=== PATIENT | male | born 1945 | race Caucasian/White ===

== ENCOUNTER 2017-03-28 10:54 | Day surgery (SDC) | payer MEDICARE ==
[~2017-03-28 10:54] MED LIST: ALDACTONE50 MG PO; CARAFATE1 G PO; CORGARD80 MG PO; ENULOSE10 G/15 ML PO; LASIX40 MG PO; PROTONIX20 MG PO; VITAMIN B-150 MG PO
[2017-03-28 12:18] LABS: BASOPHILS 0.3 % (0-2); EOSINOPHILS 5.6 % (0-7); HEMATOCRIT 29.2 % (42.0-54.0); HEMOGLOBIN 10.2 g/dL (13.5-17.5); IMMATURE GRANULOCYTES 0.2 % (0-5); LYMPHOCYTES 39.9 % (15-50); MCHC 34.9 g/dL (31.0-37.0); MCV 103.2 fL (80.0-100.0); MEAN PLATELET VOLUME 10.6 fL (7.4-10.4); MONOCYTES 12.4 % (2-11); NEUTROPHILS 41.6 % (40-80); PLATELET COUNT 117 10x3/uL (130-400); RBC 2.83 10x6/uL (4.20-6.10); RDW 13.6 % (11.5-14.5); WBC 5.7 10x3/uL (4.8-10.8)
[2017-03-28 12:27] LABS: APTT 31.6 SECONDS (22.8-39.4); INR 1.27 (0.85-1.17); PROTIME 15.8 SECONDS (11.6-15.0)
[2017-03-28 12:32] LABS: ALBUMIN 2.8 g/dL (3.4-5.0); ALKALINE PHOSPHATASE 92 U/L (46-116); ALT (SGPT) 17 U/L (10-68); BILIRUBIN - TOTAL 1.61 mg/dL (0.2-1.3); CALC OSMOLALITY 277 mosm/kg (275-300); CALCIUM 8.9 mg/dL (8.5-10.1); CARBON DIOXIDE 28.2 mmol/L (21.0-32.0); CHLORIDE - SERUM 107 mmol/L (98-107); GLUCOSE 99 mg/dL (74-106); POTASSIUM - SERUM 3.9 mmol/L (3.5-5.1); PROTEIN - SERUM 6.5 g/dL (6.4-8.2); SODIUM 139 mmol/L (136-145); UREA NITROGEN 12 mg/dL (7-18); eGFR NON AFRICAN AMERICAN 78 mL/min (90-120)
[2017-03-28 13:03] VITALS: BP 101/51; BMI 30.6
--- NOTE | 2017-03-28 14:17 | NUR ---
1417 BALLOON DILATION TO 17 MM 55 YI.
--- NOTE | 2017-04-01 16:01 | OP ---
PATIENT NAME: SCOTT ROMAN JR MEDICAL RECORD: [id number] :47 LOCATION:[facility] ADMISSION DATE: SURGEON: LULU PEDERSON MD DATE OF OPERATION: 03/28/2017 PROCEDURE: EGD with biopsy and esophageal balloon dilatation. REFERRING PHYSICIAN: Antonia Prado. INDICATIONS: Mr. 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 He has been having symptoms of dysphagia. His last EGD was 06/13/2016, showed grade I esophageal varices, healed ulcerative esophagitis, cazcvbqz-ky-fmqsz hiatal hernia, and a nonobstructive asymptomatic Schatzki ring, gastritis. He has been on nadolol for esophageal varices. He presents for outpatient EGD. PREMEDICATIONS: Total IV anesthesia (cirrhosis), propofol 200 mg. INSTRUMENT: Olympus video gastroscope and esophageal balloon dilator. PROCEDURE AND FINDINGS: After receiving informed consent, Mr. Roman's posterior pharynx was anesthetized with Cetacaine spray. He was placed in left lateral decubitus position, sedated as per anesthesia. After achieving adequate sedation, gastroscope was introduced per orally and advanced to the duodenum without difficulty. The esophageal mucosa was without erythema or ulcers. No varices were noted on this exam. He had a thick nonobstructive Schatzki ring at the GE junction. Mttlq-vk-cwqiqyvt size hiatal hernia is present. Gastric mucosa was notable for mild diffuse erythema involving the antrum and proximal body and distal body of the stomach. Antral biopsies were obtained to rule out Helicobacter pylori. No lesions were seen in the cardia or fundus. There were no gastric varices noted. Pylorus was patent and competent. Duodenal mucosa was without erythema or ulcers, appeared normal through the second portion. Gastroscope was then withdrawn to the stomach. Esophageal balloon dilator was then introduced through the gastroscope and then the balloon was positioned midway across the distal esophagus, insufflated to a 17-mm size (51-Argentine) and held in place in the appropriate PSI and then deflated with good results. There was no bleeding post-esophageal dilatation. The balloon and gastroscope were then withdrawn. Mr. Roman tolerated the procedure well. No immediate complications. ASSESSMENT: 1. Thick nonobstructive Schatzki ring, status post esophageal balloon dilatation. 2. Jrmvx-sy-xtbqjtpp size hiatal hernia. 3. Mild gastritis. RECOMMENDATIONS: 1. Follow up histopathology. 2. Gastric soft diet. TRANSINT:[id number] Voice Confirmation ID: [id number] DOCUMENT ID: [id number] OPERATIVE REPORT [id number] SCOTT ROMAN TERRI MD at 1601 CC: ANTONIA PRADO MD [id number] DICTATION DATE: 03/28/17 1438 PLASMA SPECIALIST: 03/28/17 1637 [facility] 03/28/17 [id number] [place] [address]
== END 2017-03-28 15:40 | disposition home or self-care (01) ==
LOC: D.OPS 10:54
PROVIDERS: Anesthesiology
DX: R13.10 Dysphagia, unspecified (principal); I85.00 Esophageal varices without bleeding; K44.9 Diaphragmatic hernia without obstruction or gangrene; K29.70 Gastritis, unspecified, without bleeding; K22.2 Esophageal obstruction; K21.9 Gastro-esophageal reflux disease without esophagitis; Z01.812 Encounter for preprocedural laboratory examination

== ENCOUNTER 2018-12-01 12:20 | Day surgery (SDC) | payer MEDICARE ==
[~2018-12-01] VITALS: Ht 170.2 cm; Wt 94.5 kg
[2018-12-01 13:03] LABS: HEMATOCRIT 31.1 % (42.0-54.0); HEMOGLOBIN 10.8 g/dL (13.5-17.5); MCH 34.7 pg (26.0-34.0); MCHC 34.7 g/dL (31.0-37.0); MEAN PLATELET VOLUME 10.6 fL (7.4-10.4); RBC 3.11 10x6/uL (4.20-6.10); WBC 5.7 10x3/uL (4.8-10.8)
[2018-12-01 13:13] LABS: APTT 31.1 SECONDS (22.8-39.4); INR 1.23 (0.85-1.17)
[2018-12-01 13:15] LABS: ALBUMIN 2.9 g/dL (3.4-5.0); ALKALINE PHOSPHATASE 82 U/L (46-116); ALT (SGPT) 17 U/L (10-68); CALC OSMOLALITY 281 mosm/kg (275-300); CARBON DIOXIDE 27.6 mmol/L (21.0-32.0); CHLORIDE - SERUM 109 mmol/L (98-107); CREATININE - SERUM 0.9 mg/dL (0.6-1.3); GLUCOSE 94 mg/dL (74-106); POTASSIUM - SERUM 4.3 mmol/L (3.5-5.1); PROTEIN - SERUM 6.6 g/dL (6.4-8.2); SODIUM 142 mmol/L (136-145); UREA NITROGEN 10 mg/dL (7-18); eGFR NON AFRICAN AMERICAN 88 mL/min (90-120)
[2018-12-01] MEDS ORDERED: XIFAXAN550 MG PO (13:19)
[2018-12-01 13:24] VITALS: BP 109/56; Ht 170.2 cm; Wt 94.5 kg
--- NOTE | 2018-12-01 16:43 | NUR ---
1530 IV REMOVED AND PRESSURE HELD DRESSING APPLIED
--- NOTE | 2018-12-02 18:01 | OP ---
PATIENT NAME: SCOTT ROMAN JR MEDICAL RECORD: [id number] :46 LOCATION:[facility] ADMISSION DATE: SURGEON: MYRTLE BRUCE DO DATE OF OPERATION: 12/01/2018 PROCEDURE: EGD with polypectomy and cold forceps biopsy. SCOPE: Olympus video gastroscope. MEDICATIONS: Propofol 440 mg IV per anesthesia. ESTIMATED BLOOD LOSS: Minimal. COMPLICATIONS: None. FINDINGS: Informed consent was given. The patient was made comfortable with the above medication. After reaching an adequate level of sedation by slow IV push, the patient was placed on his left side. The endoscope was advanced under direct visualization through the mouth to the third portion of the duodenum. The upper and middle thirds of the esophagus appeared normal. In the distal third of the esophagus, there were small grade I esophageal varices without bleeding or stigmata. At the GE junction, there was nonobstructive Schatzki's ring. The patient was asymptomatic, so this was not dilated on today's examination. The endoscope was advanced beyond the GE junction into the stomach and retroflexed to view the cardia, where a hiatal hernia was present. There were no associated ulcers or erosions with this hernia. Throughout the entire stomach, there was mild portal hypertensive gastropathy, characterized by erythema and congestion of the mucosa. A single cold forceps biopsy was taken from the antrum to submit for histopathology and to rule out the presence of H. pylori. The endoscope was advanced beyond the pylorus into the duodenum. The bulb and third portions of the duodenum appeared normal. In the second portion, there was an adenomatous-appearing polyp, which was removed using hot forceps in piecemeal fashion. The remaining tissue and surrounding tissue were cauterized using the hot forceps. The endoscope was withdrawn from the patient. The patient tolerated the procedure well and there were no complications. IMPRESSION: 1. Grade I esophageal varices without bleeding or bleeding stigmata. 2. Small nonobstructing Schatzki's ring at the GE junction. 3. Sliding-type hiatal hernia. 4. Portal hypertensive gastropathy. 5. 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 PLAN AND RECOMMENDATIONS: 1. Discharge home when recovery parameters are met. 2. Follow up biopsy specimen results. 3. Continue current diet and medications. 4. Recall EGD will be dependent on results of adenomatous polyp removal. This could be as early as 3-6 months or a repeat in 2 years for surveillance of esophageal varices. TRANSINT:[id number] Voice Confirmation ID: [id number] DOCUMENT ID: [id number] OPERATIVE REPORT [id number] SCOTT ROMAN NATHAN A DO at 1801 CC: [id number] DICTATION DATE: 12/01/18 1449 CONTINUOUS TOWEL ROLLER: 12/01/18 1645 [facility] 12/01/[address] [address]
== END 2018-12-01 16:20 | disposition home or self-care (01) ==
LOC: D.OPS 12:20
PROVIDERS: Anesthesiology; ATTEND Internal Medicine Gastroenterology
DX: I85.00 Esophageal varices without bleeding (principal); K44.9 Diaphragmatic hernia without obstruction or gangrene; K22.2 Esophageal obstruction; K76.6 Portal hypertension; K31.89 Other diseases of stomach and duodenum; K31.7 Polyp of stomach and duodenum

== ENCOUNTER 2018-12-08 11:26 | Day surgery (SDC) | payer MEDICARE ==
[~2018-12-08] VITALS: Ht 170.2 cm; Wt 94.5 kg
[~2018-12-08 11:26] MED LIST changes: +XIFAXAN550 MG PO
[2018-12-08 11:51] LABS: HEMATOCRIT 35.3 % (42.0-54.0); HEMOGLOBIN 12.4 g/dL (13.5-17.5); MCH 34.7 pg (26.0-34.0); MCHC 35.1 g/dL (31.0-37.0); MCV 98.9 fL (80.0-100.0); MEAN PLATELET VOLUME 11.3 fL (7.4-10.4); RBC 3.57 10x6/uL (4.20-6.10); RDW 13.9 % (11.5-14.5); WBC 6.1 10x3/uL (4.8-10.8)
[2018-12-08 12:15] LABS: CALC OSMOLALITY 281 mosm/kg (275-300); CALCIUM 9.2 mg/dL (8.5-10.1); CARBON DIOXIDE 23.5 mmol/L (21.0-32.0); CHLORIDE - SERUM 106 mmol/L (98-107); GLUCOSE 95 mg/dL (74-106); POTASSIUM - SERUM 4.5 mmol/L (3.5-5.1); SODIUM 141 mmol/L (136-145); UREA NITROGEN 16 mg/dL (7-18); eGFR NON AFRICAN AMERICAN 78 mL/min (90-120)
[2018-12-08 12:55] VITALS: Ht 170.2 cm; Wt 94.5 kg
--- NOTE | 2018-12-08 14:42 | NUR ---
PT DC INSTRUCTIONS REVEIWED AT THIS TIME, PT VERBALIZES UNDERSTANDING. PT IV REMOVED AT THIS TIME, INTACT, NO REDNESS OR SWELLING NOTED AT SITE.
--- NOTE | 2018-12-08 15:00 | NUR ---
PT LEAVING OPS AT THIS TIME.
--- NOTE | 2018-12-11 16:17 | OP ---
PATIENT NAME: SCOTT ROMAN JR MEDICAL RECORD: [id number] :46 LOCATION:[facility] ADMISSION DATE: SURGEON: MYRTLE BRUCE DO DATE OF OPERATION: 12/08/2018 PROCEDURE: Colonoscopy with polypectomy. INDICATIONS FOR PROCEDURE: Personal history of polyps. The patient's last colonoscopy was in December of 2015 and that revealed mild internal hemorrhoids as well as a transverse colon polyp. SCOPE: Olympus video pediatric colonoscope. MEDICATIONS: Propofol 600 mg IV per anesthesia. WITHDRAWAL TIME: 32 minutes. ESTIMATED BLOOD LOSS: Minimal. COMPLICATIONS: None. FINDINGS: Informed consent was given. The patient was made comfortable with the above medication. After reaching an adequate level of sedation by slow IV push, the patient was placed on his left side. A digital rectal examination was performed and it was normal. The endoscope was advanced under direct visualization through the rectum to the cecum, confirmed by the presence of the appendiceal orifice and ileocecal valve. The endoscope was slowly withdrawn. Mucosa was carefully examined. The prep quality was good in the left side of the colon, but inadequate in the cecum and ascending colon to rule out presence of more polyps. There were 3 polyps located in the ascending colon. Two of these were benign-appearing and sessile and ranged in size from 3-5 mm in diameter. They were both removed using hot forceps. There was a third ascending colon polyp, which was benign appearing and flat. It measured approximately 1-1.2 cm in size. It was removed in a piecemeal fashion using a hot snare after lifting of the polyp utilizing an isotonic saline and Eleview. In the descending colon, there was a final polyp that measured approximately 5 mm in diameter. It was benign appearing and sessile and was removed in 1 piece using a hot snare. Retroflexion was performed in the rectum with visualization of grade I internal hemorrhoids without bleeding. The endoscope was withdrawn from the patient. The patient tolerated the procedure well and there were no complications. IMPRESSION: 1. Multiple polyps as described above, removed using a combination of hot forceps, hot snare, and EMR technique. 2. Grade I internal hemorrhoids without bleeding. PLAN AND RECOMMENDATIONS: 1. Discharge home when recovery parameters are met. 2. Follow up biopsy specimen results. 3. High fiber and GERD diet with reflux precautions. 4. Recommend a recall colonoscopy in 6 months due to the piecemeal removal of today's polyp and the inadequate prep in the cecum and ascending colon. 5. The patient will also need an EGD in approximately 6 months for the recently found adenomatous polyp on upper endoscopy in the duodenum. OPERATIVE REPORT [id number] SCOTT ROMAN TRANSINT:[id number] Voice Confirmation ID: [id number] DOCUMENT ID: [id number] MYRTLE BRUCE DO at 1617 CC: [id number] DICTATION DATE: 12/08/18 1404 CATTLE KNOCKER: 12/08/18 1540 [facility] 12/08/18 [facility] [address] [place] [address]
== END 2018-12-08 15:00 | disposition home or self-care (01) ==
LOC: D.OPS 11:26
PROVIDERS: Anesthesiology; ATTEND Internal Medicine Gastroenterology
DX: D12.2 Benign neoplasm of ascending colon (principal); D12.4 Benign neoplasm of descending colon; K64.0 First degree hemorrhoids; Z01.812 Encounter for preprocedural laboratory examination

== ENCOUNTER 2019-06-08 09:20 | Day surgery (SDC) | payer MEDICARE ==
[~2019-06-08] VITALS: Ht 170.2 cm; Wt 94.5 kg
--- NOTE | ~2019-06-08 | OP ---
PATIENT NAME: SCOTT ROMAN JR MEDICAL RECORD: [id number] :47 LOCATION:[facility] ADMISSION DATE: SURGEON: MYRTLE BRUCE DO DATE OF OPERATION: 06/08/2019 PROCEDURE: EGD with polyp removal. SCOPE: Olympus video gastroscope. MEDICATIONS: Propofol 550 mg IV per anesthesia. ESTIMATED BLOOD LOSS: Less than 3 mL. COMPLICATIONS: None immediate. FINDINGS: Informed consent was given. The patient was made comfortable with the above medication. After reaching an adequate level of sedation by slow IV push, the patient was placed on his left side. The endoscope was advanced under direct visualization through the mouth to the second portion of the duodenum with ease. In the lower esophagus, there were very mild grade I esophageal varices without any bleeding stigmata. At the GE junction, there was a very mild nonobstructive Schatzki ring, located just proximal to a vtpno-gj-eamywb size sliding hiatal hernia. The endoscope was advanced beyond the GE junction and retroflexed to view the cardia and fundus where the hiatal hernia was again visualized. There were no associated ulcers or other abnormalities. There were no obvious gastric varices seen in the fundus. Throughout the entire stomach, there was some portal hypertensive gastropathy of mild severity. In the body of the stomach, there was a gastric polyp visualized. It was removed in its entirety using a cold forceps. After this removal, there was bleeding from the polyp that was not stopping spontaneously. The forceps were used for cauterization of the site unsuccessfully. For hemostasis, a single endoclip was used successfully with visualization of bleeding cessation. The endoscope was advanced through the antrum and pylorus, into the small bowel. The bulb of the duodenum appeared normal. In the second portion, there was an adenomatous polyp that was previously identified and biopsy. The polyp was removed using a combination of cold forceps, hot forceps, and snare cautery. The endoscope was then withdrawn from the patient. The patient tolerated the procedure well and there were no immediate complications. IMPRESSION: 1. Grade I esophageal varices without bleeding stigmata. 2. Small nonobstructing Schatzki ring. 3. Small to moderate size hiatal hernia. 4. Gastric polyp status post removal. 5. Portal hypertensive gastropathy. 6. Duodenal polyp status post removal. PLAN AND RECOMMENDATIONS: 1. Discharge home when recovery parameters are met. 2. Follow up biopsy specimen results. 3. GERD diet and reflux precautions as well as low sodium diet. 4. Continue current medications. 5. Recall EGD will be dependent on results of biopsy specimens, but this will likely need to occur within a 6 month to 12 month time line. OPERATIVE REPORT [id number] SCOTT ROMAN TRANSINT:[id number] Voice Confirmation ID: [id number] DOCUMENT ID: [id number] MYRTLE BRUCE DO CC: [id number] DICTATION DATE: 06/08/19 1111 HOUSE REGISTRY RN: 06/08/19 1839 [facility] 06/08/19 [id number] [place] [address]
[2019-06-08 10:14] LABS: ALBUMIN 3.2 g/dL (3.4-5.0); ANION GAP 11.7 mmol/L (8-16); BILIRUBIN - TOTAL 1.3 mg/dL (0.2-1.3); CALCIUM 9.3 mg/dL (8.5-10.1); CREATININE - SERUM 1.1 mg/dL (0.6-1.3); POTASSIUM - SERUM 4.7 mmol/L (3.5-5.1)
[2019-06-08 10:19] LABS: INR 1.17 (0.85-1.17); PROTIME 14.4 SECONDS (11.6-15.0)
[2019-06-08 10:20] VITALS: Ht 170.2 cm; Wt 94.5 kg
[2019-06-08 10:21] LABS: BASOPHILS 0.7 % (0-2); EOSINOPHILS 7.8 % (0-7); HEMATOCRIT 33.7 % (42.0-54.0); HEMOGLOBIN 11.5 g/dL (13.5-17.5); IMMATURE GRANULOCYTES 0.2 % (0-5); LYMPHOCYTES 37.2 % (15-50); MCHC 34.1 g/dL (31.0-37.0); MCV 102.4 fL (80.0-100.0); MEAN PLATELET VOLUME 10.6 fL (7.4-10.4); MONOCYTES 13.7 % (2-11); NEUTROPHILS 40.4 % (40-80); PLATELET COUNT 136 10x3/uL (130-400); RBC 3.29 10x6/uL (4.20-6.10); RDW 13.8 % (11.5-14.5); WBC 5.6 10x3/uL (4.8-10.8)
--- NOTE | 2019-06-08 14:15 | NUR ---
1250 IV DC'D. CATHETER TIP INTACT. NO BLEEDING AT SITE. BANDAID APPLIED.
== END 2019-06-08 13:06 | disposition home or self-care (01) ==
LOC: D.OPS 09:20
PROVIDERS: ATTEND Internal Medicine Gastroenterology
DX: K70.31 Alcoholic cirrhosis of liver with ascites (principal); K80.50 Calculus of bile duct without cholangitis or cholecystitis without obstruction; I85.10 Secondary esophageal varices without bleeding; K72.90 Hepatic failure, unspecified without coma

== ENCOUNTER 2019-06-15 08:48 | Day surgery (SDC) | payer MEDICARE ==
[~2019-06-15] VITALS: Ht 170.2 cm; Wt 94.5 kg
[2019-06-15 09:29] LABS: HEMATOCRIT 34.3 % (42.0-54.0); HEMOGLOBIN 11.8 g/dL (13.5-17.5); MCHC 34.4 g/dL (31.0-37.0); MCV 101.8 fL (80.0-100.0); MEAN PLATELET VOLUME 10.4 fL (7.4-10.4); RBC 3.37 10x6/uL (4.20-6.10); RDW 13.8 % (11.5-14.5); WBC 5.7 10x3/uL (4.8-10.8)
[2019-06-15 09:44] LABS: APTT 31.6 SECONDS (22.8-39.4); INR 1.15 (0.85-1.17); PROTIME 14.2 SECONDS (11.6-15.0)
[2019-06-15 09:49] VITALS: Ht 170.2 cm; Wt 94.5 kg
[2019-06-15 09:49] LABS: ALBUMIN 3.2 g/dL (3.4-5.0); ANION GAP 12.8 mmol/L (8-16); BILIRUBIN - TOTAL 1.44 mg/dL (0.2-1.3); CALCIUM 9.1 mg/dL (8.5-10.1); CARBON DIOXIDE 25.5 mmol/L (21.0-32.0); CREATININE - SERUM 1.1 mg/dL (0.6-1.3); POTASSIUM - SERUM 4.3 mmol/L (3.5-5.1)
--- NOTE | 2019-06-15 17:14 | OP ---
PATIENT NAME: SCOTT ROMAN JR MEDICAL RECORD: [id number] :46 LOCATION:[facility] ADMISSION DATE: SURGEON: MYRTLE BRUCE DO DATE OF OPERATION: 06/15/2019 PROCEDURE: Colonoscopy with polypectomy. INDICATIONS FOR PROCEDURE: This is 6-month followup for personal history of polyps. SCOPE: [employer] video pediatric colonoscope. MEDICATIONS: Propofol 350 mg IV per anesthesia. WITHDRAWAL TIME: 10 minutes. ESTIMATED BLOOD LOSS: Minimal. COMPLICATIONS: None. FINDINGS: Informed consent was given. The patient was made comfortable with the above medication. After reaching an adequate level of sedation by slow IV push, the patient was placed on his left side. A digital rectal examination was performed and it was normal. The endoscope was then advanced under direct visualization through the rectum to the cecum and terminal ileum. The endoscope was slowly withdrawn and mucosa was carefully examined. The prep quality was good. There were 2 polyps visualized on today's examination. One was located in the descending colon. It was a benign appearing sessile polyp, which measured approximately 3-4 mm in diameter. It was removed using hot forceps. The second polyp was located in the rectum. It was a benign appearing sessile polyp, which measured approximately 3 mm in diameter. It was removed using hot forceps. Retroflexion was performed in the rectum with visualization of grade I internal hemorrhoids without bleeding. There were no other abnormalities visualized on today's examination. The endoscope was withdrawn from the patient. The patient tolerated the procedure well and there were no complications. IMPRESSION: 1. Two polyps as described above, removed using hot forceps. 2. Grade I internal hemorrhoids without bleeding. PLAN AND RECOMMENDATIONS: 1. Discharge home when recovery parameters are met. 2. Follow up biopsy specimen results. 3. High fiber diet. 4. Continue current medications. 5. Recall colonoscopy in 3 years. TRANSINT:[id number] Voice Confirmation ID: [id number] DOCUMENT ID: [id number] OPERATIVE REPORT [id number] SCOTT ROMAN MYRTLE BRUCE DO at 1714 CC: [id number] DICTATION DATE: 06/15/19 1101 HAND LOOM WEAVER: 06/15/19 1611 [facility] 06/15/19 [place] [address]
== END 2019-06-15 12:15 | disposition home or self-care (01) ==
LOC: D.OPS 08:48
PROVIDERS: Anesthesiology; ATTEND Internal Medicine Gastroenterology
DX: Z51.89 Encounter for other specified aftercare (principal); K63.5 Polyp of colon; K70.31 Alcoholic cirrhosis of liver with ascites; K80.50 Calculus of bile duct without cholangitis or cholecystitis without obstruction; I85.00 Esophageal varices without bleeding; K72.90 Hepatic failure, unspecified without coma

== ENCOUNTER 2019-11-23 08:43 | Day surgery (SDC) | payer MEDICARE ==
[~2019-11-23] VITALS: Ht 170.2 cm; Wt 90.9 kg
[2019-11-23 09:08] LABS: BASOPHILS 0.6 % (0-2); EOSINOPHILS 7.3 % (0-7); HEMATOCRIT 33.2 % (42.0-54.0); HEMOGLOBIN 10.9 g/dL (13.5-17.5); LYMPHOCYTES 38.3 % (15-50); MCH 32.6 pg (26.0-34.0); MCHC 32.8 g/dL (31.0-37.0); MCV 99.4 fL (80.0-100.0); MEAN PLATELET VOLUME 10.8 fL (7.4-10.4); MONOCYTES 11.8 % (2-11); PLATELET COUNT 141 10x3/uL (130-400); RBC 3.34 10x6/uL (4.20-6.10); RDW 14.5 % (11.5-14.5); WBC 5.3 10x3/uL (4.8-10.8)
[2019-11-23] MEDS ORDERED: FAMOTIDINE10 MG (09:22)
[2019-11-23 09:44] VITALS: Ht 170.2 cm; Wt 90.9 kg
--- NOTE | 2019-11-23 11:46 | NUR ---
DISCHARGE INSTRUCTIONS REVIEWED WITH PATIENT, PATIENT AMBULATING AROUND ROOM WITHOUT DIZZINESS OR UNSTEADINESS. 1150 DISCHARGED HOME VIA WHEELCHAIR TO PRIVATE VEHICLE WITH SPOUSE
--- NOTE | 2019-11-24 07:12 | OP ---
PATIENT NAME: SCOTT ROMAN JR MEDICAL RECORD: [id number] :46 LOCATION:[facility] ADMISSION DATE: SURGEON: MYRTLE BRUCE DO DATE OF OPERATION: 11/23/2019 PROCEDURE: EGD with biopsies. INDICATIONS FOR PROCEDURE: Past adenomatous neoplasm of the duodenum. This is a reevaluation from 6 months ago. The patient also has a history of a gastric polyp, which was biopsied 6 months ago. SCOPE: Olympus video gastroscope. MEDICATIONS: Propofol 220 mg IV per anesthesia. ESTIMATED BLOOD LOSS: Minimal. COMPLICATIONS: None. FINDINGS: Informed consent was given. The patient was made comfortable with the above medication. After reaching an adequate level of sedation by slow IV push, the patient was placed on his left side. The endoscope was advanced under direct visualization through the mouth to the second portion of the duodenum with ease. In the esophagus, there were very small grade I esophageal varices without bleeding stigmata. In the distal esophagus, there was a nonobstructing Schatzki's ring, which was dilated using a CRE balloon up to 19 mm maximum diameter successfully. Just distal to the Schatzki ring, there was a hiatal hernia, which was visible both proximally and distally from within the stomach. There were no associated ulcers or other abnormalities with this hernia. Throughout the stomach, there was evidence of mild portal hypertensive gastropathy. The site of the gastric polyp, which was removed at last visit was identified as there was a single endoclip still in place. The site appeared normal without any nodular tissue or other findings to warrant further evaluation at this time. Two cold forceps biopsies were taken from the antrum. The endoscope was advanced beyond the pylorus into the duodenum. There were no obvious abnormalities or adenomatous tissue visualized throughout the entire exam and duodenum. The endoscope was removed from the patient. The patient tolerated the procedure well and there were no complications. IMPRESSION: 1. Grade I esophageal varices without bleeding stigmata. 2. Nonobstructing Schatzki's ring, which was dilated to 19 mm. 3. Small sliding hiatal hernia. 4. Portal hypertensive gastropathy. PLAN AND RECOMMENDATIONS: 1. Discharge home when recovery parameters are met. 2. Follow up biopsy specimen results. 3. GERD diet and reflux precautions. 4. Continue current medications. 5. Recall EGD in 2 years for variceal surveillance. TRANSINT:[id number] Voice Confirmation ID: [id number] DOCUMENT ID: [id number] OPERATIVE REPORT [id number] SCOTT ROMAN NATHAN A DO at 0712 CC: [id number] DICTATION DATE: 11/23/19 1059 ART LIBRARIAN: 11/23/19 2140 [facility] 11/23/19 [id number]
== END 2019-11-23 11:50 | disposition home or self-care (01) ==
LOC: D.OPS 08:43
PROVIDERS: Anesthesiology; ATTEND Internal Medicine Gastroenterology
DX: D49.0 Neoplasm of unspecified behavior of digestive system (principal); K22.2 Esophageal obstruction; K74.60 Unspecified cirrhosis of liver; R18.8 Other ascites; K21.9 Gastro-esophageal reflux disease without esophagitis; K72.90 Hepatic failure, unspecified without coma; I85.10 Secondary esophageal varices without bleeding